=== PATIENT | male | born 1980 | race Caucasian/White ===

== ENCOUNTER 2017-01-24 09:10 | Emergency (ER) | payer MEDICAID ==
[2015-09-02 18:17] VITALS: BMI 28.7
[~2017-01-24 09:10] MED LIST: NEXIUM40 MG PO
== END 2017-01-24 10:07 | disposition home or self-care (01) ==
LOC: D.ER 09:10
DX: S43.401A Unspecified sprain of right shoulder joint, initial encounter (principal); W14.XXXA Fall from tree, initial encounter; Y93.89 Activity, other specified; Y92.89 Other specified places as the place of occurrence of the external cause; F17.200 Nicotine dependence, unspecified, uncomplicated

== ENCOUNTER 2019-06-18 21:05 | Emergency (ER) | payer MEDICAID ==
[~2019-06-18] VITALS: Ht 177.8 cm; Wt 90.9 kg
[2019-06-18 21:13] VITALS: Ht 177.8 cm; Wt 90.9 kg
[2019-06-18] MEDS ORDERED: TORADOL10 MG PO (22:27)
[2019-06-18 22:55] VITALS: BP 114/66
== END 2019-06-18 22:55 | disposition home or self-care (01) ==
LOC: D.ER 21:05
DX: S61.412A Laceration without foreign body of left hand, initial encounter (principal); W26.0XXA Contact with knife, initial encounter

== ENCOUNTER 2020-06-08 13:16 | Emergency (ER) | payer MEDICAID ==
[~2020-06-08] VITALS: Ht 177.8 cm; Wt 106.8 kg
[~2020-06-08 13:16] MED LIST changes: +TORADOL10 MG PO
[2020-06-08 13:22] VITALS: BP 132/84; Ht 177.8 cm; Wt 106.8 kg
[2020-06-08] MEDS ORDERED: ERYTHROMYCIN OPT1 GM LEFT EYE (14:33)
== END 2020-06-08 16:40 | disposition home or self-care (01) ==
LOC: D.ER 13:16
DX: S05.02XA Injury of conjunctiva and corneal abrasion without foreign body, left eye, initial encounter (principal); S00.12XA Contusion of left eyelid and periocular area, initial encounter; J45.909 Unspecified asthma, uncomplicated; W22.8XXA Striking against or struck by other objects, initial encounter; Y93.9 Activity, unspecified; Y92.9 Unspecified place or not applicable